=== PATIENT | female | born 1995 ===

== ENCOUNTER 2017-06-27 04:29 | Inpatient (IN) | payer OTHER ==
[2017-06-27] MEDS ORDERED: AMPICILLIN 1 GM PDS 2 GM in SODIUM CHLORIDE 0.9% 100 ML 100 ML IV SCH (07:15)
[2017-06-27 07:22] LABS: BASOPHILS % (AUTO) 1 % (0-3); EOSINOPHILS % (AUTO) 1 % (0-9); HEMATOCRIT 38 % (35-47); HEMOGLOBIN 12.1 gm/dl (12.0-15.5); LYMPHOCYTES % (AUTO) 9.98 % (10-50); MEAN CORPUSCULAR HEMOGLOBIN 25.7 pg (27.0-32.0); MEAN CORPUSCULAR HGB CONC 32.4 gm/dl (32.0-36.0); MONOCYTES % (AUTO) 6.2 % (0-12); NEUTROPHILS % (AUTO) 81.7 % (37-80)
[2017-06-27 07:27] LABS: MEAN CORPUSCULAR VOLUME 79 fL (81-99)
[2017-06-27] MEDS ORDERED: AMPICILLIN 1 GM PDS ONE ×5 (07:52→23:51)
[2017-06-27] MEDS ORDERED: FENTANYL 100MCG/2ML SOL IV PRN (08:15)
[2017-06-27] MEDS ORDERED: LACTATED RINGERS 1,000 ML IV PRN (08:15)
[2017-06-27] MEDS ORDERED: METHYLERGONOVINE MALEATE 0.2 MG/ML SOL IM PRN (08:15)
[2017-06-27] MEDS ORDERED: OXYTOCIN 10000 MU/ML SOL IM PRN (08:15)
[2017-06-27] MEDS ORDERED: CARBOPROST 250 MCG/ML SOL IM PRN (08:15)
[2017-06-27] MEDS ORDERED: MEPIVACAINE HCL 1% MPF 30 ML/VIAL SOL INFIL PRN (08:15)
[2017-06-27] MEDS ORDERED: SODIUM CHLORIDE 0.9% FLUSH 10 ML SOL IV PRN (08:15)
[2017-06-27] MEDS: SODIUM CHLORIDE 0.9% FLUSH 10 ML SOL IV SCH (08:45)
[2017-06-27] MEDS: AMPICILLIN 1 GM PDS 1 GM in SODIUM CHLORIDE 0.9% 100 ML 100 ML IV SCH ×4 (12:12→23:55)
[2017-06-27] MEDS ORDERED: TERBUTALINE SULFATE 1 MG/ML SOL SC PRN (12:47)
[2017-06-27] MEDS ORDERED: LACTATED RINGERS 1,000 ML ONE (12:59)
[2017-06-27] MEDS ORDERED: OXYTOCIN 10000 MU/ML SOL ONE (12:59)
[2017-06-27] MEDS ORDERED: LACTATED RINGERS 1,000 ML IV SCH (13:00)
[2017-06-27] MEDS ORDERED: OXYTOCIN 10000 MU/ML 20,000 MU in LACTATED RINGERS 1,000 ML IV SCH (13:00)
[2017-06-27] MEDS: LACTATED RINGERS 1,000 ML IV SCH ×3 (16:30→18:20)
[2017-06-27] MEDS ORDERED: EPHEDRINE SULFATE 50 MG/ML SOL IV PRN (16:42)
[2017-06-27] MEDS ORDERED: DIPHENHYDRAMINE 50 MG/ML SOL IV PRN (16:42)
[2017-06-27] MEDS ORDERED: NALOXONE HYDROCHLORIDE 0.4 MG/ML SOL IV PRN (16:42)
[2017-06-27] MEDS ORDERED: NALBUPHINE HCL 20 MG/ML SOL IV PRN (16:42)
[2017-06-27] MEDS ORDERED: FENTANYL 250 MCG/ 5ML SOL ONE (16:43)
[2017-06-27] MEDS ORDERED: ROPIVACAINE HYDROCHLORIDE 5 MG/ML SOL ONE (16:43)
[2017-06-27] MEDS ORDERED: LIDOCAINE HCL 2% MPF 10 ML SOL ONE (16:44)
[2017-06-28] MEDS ORDERED: BENZOCAINE/MENTHOL 1 SPR TOP PRN (01:12)
[2017-06-28] MEDS ORDERED: APAP/HYDROCODONE 325/5 TAB PO PRN (01:12)
[2017-06-28] MEDS ORDERED: FLEET ENEMA PR PRN (01:12)
[2017-06-28] MEDS ORDERED: WITCH HAZEL 1 EA PAD TOP PRN (01:12)
[2017-06-28] MEDS ORDERED: BISACODYL 10 MG SUP PR PRN (01:12)
[2017-06-28] MEDS ORDERED: TEMAZEPAM 15MG 15 MG CAP PO PRN (01:12)
[2017-06-28] MEDS ORDERED: METHYLERGONOVINE MALEATE 0.2 MG TAB PO PRN (01:12)
[2017-06-28] MEDS: SODIUM CHLORIDE 0.9% FLUSH 10 ML SOL IV SCH ×3 (02:28→08:17)
[2017-06-28] MEDS: LACTATED RINGERS 1,000 ML IV SCH (03:13)
[2017-06-28] MEDS: DOCUSATE SODIUM 100 MG SGL PO SCH ×2 (08:14→21:08)
[2017-06-28] MEDS: MULTIVITAMIN2 1 EA TAB PO SCH (10:20)
[2017-06-28] MEDS: FOLIC ACID 1 MG TAB PO SCH (10:20)
[2017-06-28] MEDS: IBUPROFEN 600 MG TAB PO PRN ×2 (12:14→21:11)
[2017-06-29] MEDS: IBUPROFEN 600 MG TAB PO PRN ×2 (10:06→20:11)
[2017-06-29] MEDS: DOCUSATE SODIUM 100 MG SGL PO SCH ×2 (10:15→20:11)
[2017-06-29] MEDS: MULTIVITAMIN2 1 EA TAB PO SCH (10:15)
[2017-06-29] MEDS: FOLIC ACID 1 MG TAB PO SCH (10:15)
[2017-06-29 14:18] VITALS: RESP 18
[2017-06-30] MEDS: IBUPROFEN 600 MG TAB PO PRN (05:30)
[2017-06-30 11:07] VITALS: BP 132/78; PULSE 85; TEMP 97.6; O2SAT 100
[2017-06-30] MEDS: MULTIVITAMIN2 1 EA TAB PO SCH (12:03)
[2017-06-30] MEDS: DOCUSATE SODIUM 100 MG SGL PO SCH (12:03)
[2017-06-30] MEDS: FOLIC ACID 1 MG TAB PO SCH (12:03)
== END 2017-06-30 11:45 | disposition home or self-care (01) | DRG 560 ==
LOC: OB 04:29 → OBSVTOIN 04:29 → UNDOADMOB 04:29 → OB 06-28 09:44
PROVIDERS: ADMIT Family Medicine; ATTEND Family Medicine
PROC: 3E04329 Introduction of Other Anti-infective into Central Vein, Percutaneous Approach (ICD-10-PCS; 2017-06-27)
PROC: 10E0XZZ Delivery of Products of Conception, External Approach (ICD-10-PCS; principal; 2017-06-28)
PROC: 3E0P3VZ Introduction of Hormone into Female Reproductive, Percutaneous Approach (ICD-10-PCS; 2017-06-28)
DX: O80 Encounter for full-term uncomplicated delivery (principal); O99.824 Streptococcus B carrier state complicating childbirth; O99.334 Smoking (tobacco) complicating childbirth; Z3A.40 40 weeks gestation of pregnancy; Z37.0 Single live birth
CPT/HCPCS: 36415; 59025; 85018; 85025; J0290; J0670; J2590; J2795; J3010; A4450; A9270-GY